=== PATIENT | male | born 1945 | race Caucasian/White ===

== ENCOUNTER 2019-08-29 09:45 | Emergency (ER) | payer MEDICARE ==
[~2019-08-29] VITALS: Ht 180.3 cm; Wt 118.8 kg
[2019-08-29] MEDS ORDERED: ATOR80TA59 (09:55)
[2019-08-29] MEDS ORDERED: GABA-843 (09:55)
[2019-08-29] MEDS ORDERED: ASPI81TA85 PO (09:55)
[2019-08-29] MEDS ORDERED: LEVO100T5 (09:55)
--- NOTE | 2019-08-29 10:39 | REP ---
Clinical: Cough . Comparison: 12/20/2013 . Technique: PA and lateral. Findings: The mediastinum and cardiac silhouette are normal. The lung soliz are clear and without acute consolidation, effusion, or pneumothorax. The skeletal structures are intact and normal. Impression: 1. No acute cardiopulmonary process. Electronically Signed by David Perales MD 08/29/2019 10:31 A
[2019-08-29] MEDS ORDERED: ALBUTEROL SULFATE 2.5 MG/0.5 ML INH NEB SOLN NEB STA (10:42)
[2019-08-29 11:22] LABS: BASO % 0.5 % (0.0-1.0); EOS # 0.1 10^3/uL (0.0-0.5); EOS % 3.1 % (0.0-3.0); HEMATOCRIT 41.8 % (42.0-52.0); HEMOGLOBIN 13.5 g/dl (13.5-17.5); LYMPH # 1.2 10^3/uL (1.5-5.0); LYMPH % 28.8 % (24.0-44.0); MEAN CORPUSCULAR HEMOGLOBIN 30.3 pg (27.0-33.0); MEAN CORPUSCULAR HGB CONC 32.3 g/dl (32.0-36.5); MEAN CORPUSCULAR VOLUME 93.9 fl (80.0-96.0); MONO # 0.5 10^3/uL (0.0-0.8); MONO % 12.7 % (0.0-5.0); NEUTROPHILS # 2.3 10^3/uL (1.5-8.5); NEUTROPHILS % 54.2 % (36.0-66.0); PLATELET COUNT, AUTOMATED 180 10^3/uL (150-450); RED BLOOD COUNT 4.45 10^6/uL (4.30-6.10); WHITE BLOOD COUNT 4.2 10^3/uL (4.0-10.0)
[2019-08-29 11:46] LABS: BLOOD UREA NITROGEN 20 MG/DL (7-18); CALCIUM LEVEL 8.6 MG/DL (8.8-10.2); CARBON DIOXIDE LEVEL 26 MEQ/L (21-32); CHLORIDE LEVEL 111 MEQ/L (98-107); CK-MB VALUE MASS 2.1 NG/ML (<3.6); CPK CREATINE PHOSPHOKINASE 103 U/L (39-308); CREATININE FOR GFR 0.84 MG/DL (0.70-1.30); GLOMERULAR FILTRATION RATE > 60.0 (>42); GLUCOSE, FASTING 100 MG/DL (70-100); MB/CK RELATIVE INDEX 2.04 (< OR =4); NT-PRO BNP 55 PG/ML (<450); POTASSIUM SERUM 4.2 MEQ/L (3.5-5.1); SODIUM LEVEL 142 MEQ/L (136-145); TROPONIN I < 0.02 NG/ML (< 0.10)
[2019-08-29] MEDS ORDERED: IPRATROPIUM 0.5MG/ALBUTEROL 2.5MG INH SOL UD 3ML (DUONEB)(J7620) NEB ONE ×2 (12:15→13:45)
[2019-08-29] MEDS ORDERED: NS 500 ML IV ONE (12:15)
[2019-08-29] MEDS ORDERED: methylPREDNISolone INJ 125 MG/2 ML VIAL (J2930) IV ONE (12:15)
[2019-08-29 14:26] VITALS: O2SAT 96
[2019-08-29] MEDS ORDERED: AZIT-10 PO (14:48)
[2019-08-29] MEDS ORDERED: PROAAER10 INH (14:48)
[2019-08-29] MEDS ORDERED: PRED20TA PO (14:48)
[2019-08-29 15:10] VITALS: BP 138/78
--- NOTE | 2019-08-29 15:34 | ECGEPIP ---
[facility] - ED Test Date: 2019-08-29 Pat Name: MAO QUACH Department: Room: - Gender: Male Service Girl: ct : 1945 Requested By: SHIRAZ Bean PA-C Order Number: [id number] Reading MD: Juliocesar Cervantes Measurements Intervals [place] Rate: 72 P: 84 NM: 156 QRS: -2 QRSD: 115 T: -1 QT: 380 QTc: 416 Interpretive Statements SINUS RHYTHM WITH OCCASIONAL SUPRAVENTRICULAR PREMATURE COMPLEXES MODERATE INTRAVENTRICULAR CONDUCTION DELAY Comparison tracing not on file Electronically Signed on 08-29-2019 15:34:30 EST by Juliocesar Cervantes
== END 2019-08-29 15:10 | disposition home or self-care (01) ==
LOC: M ED 09:45
DX: J45.21 Mild intermittent asthma with (acute) exacerbation (principal); J06.9 Acute upper respiratory infection, unspecified; I11.9 Hypertensive heart disease without heart failure; Z79.2 Long term (current) use of antibiotics; Z79.51 Long term (current) use of inhaled steroids; Z79.82 Long term (current) use of aspirin; Z79.899 Other long term (current) drug therapy; Z88.8 Allergy status to other drugs, medicaments and biological substances; Z91.048 Other nonmedicinal substance allergy status; Z95.818 Presence of other cardiac implants and grafts
CPT/HCPCS: 36415; 71046; 80048; 82550; 82553; 83880; 84484; 85025; 93005; 94640; 96361; 96374; 99284; J2930

== ENCOUNTER 2019-09-01 09:06 | Emergency (ER) | payer MEDICARE ==
[~2019-09-01] VITALS: Ht 180.3 cm; Wt 115.5 kg
[2019-09-01 09:06] VITALS: BP 132/80
[~2019-09-01 09:06] MED LIST: ASPI81TA85 PO; ATOR80TA59; AZIT-10 PO; GABA-843; LEVO100T5; PRED20TA PO; PROAAER10 INH
[2019-09-01] MEDS ORDERED: ALBU8.5H (09:15)
[2019-09-01] MEDS ORDERED: AZIT-12 (09:15)
[2019-09-01] MEDS ORDERED: MUCI600T31 PO (10:07)
== END 2019-09-01 10:10 | disposition home or self-care (01) ==
LOC: M ED 09:06
DX: J20.9 Acute bronchitis, unspecified (principal); E78.00 Pure hypercholesterolemia, unspecified; E03.9 Hypothyroidism, unspecified; Z88.1 Allergy status to other antibiotic agents; Z88.6 Allergy status to analgesic agent; Z79.82 Long term (current) use of aspirin; Z79.899 Other long term (current) drug therapy

== ENCOUNTER 2019-09-18 14:21 | Emergency (ER) | payer MEDICARE ==
[~2019-09-18] VITALS: Ht 177.8 cm; Wt 116.8 kg
[~2019-09-18 14:21] MED LIST changes: +ALBU8.5H; +AZIT-12; +MUCI600T31 PO
--- NOTE | 2019-09-18 14:59 | REP ---
Left shoulder three views: Mineralization is normal. There is glenohumeral osteoarthritis. The acromioclavicular joint is unremarkable. There are no calcifications. There is no fracture or dislocation. There is a large destructive pathologic lucency in the proximal humeral shaft. Electronically Signed by Juan Dietz MD 09/18/2019 02:50 P
[2019-09-18] MEDS ORDERED: NAPR-837 PO (16:51)
[2019-09-18] MEDS ORDERED: NAPROXEN 250 MG TAB PO ONE (17:00)
[2019-09-18 17:05] VITALS: BP 144/80
--- NOTE | 2019-09-20 09:03 | ED PDOC ---
Post-Departure Follow-Up certified letter sent to pt re formal read of left shoulder. obtain pcp name and fax and ensure pt is following up Marlyn Montgomery MD Sep 20, 2019 09:03
== END 2019-09-18 17:09 | disposition home or self-care (01) ==
LOC: M ED 14:21
DX: M75.92 Shoulder lesion, unspecified, left shoulder (principal); M19.012 Primary osteoarthritis, left shoulder; I11.9 Hypertensive heart disease without heart failure; Z91.048 Other nonmedicinal substance allergy status; Z88.1 Allergy status to other antibiotic agents; Z88.6 Allergy status to analgesic agent; Z79.02 Long term (current) use of antithrombotics/antiplatelets; Z79.899 Other long term (current) drug therapy

== ENCOUNTER → 2019-09-23 | Outpatient (CLI) | payer MEDICARE ==
[~2019-09-23] MED LIST changes: +NAPR-837 PO
--- NOTE | 2019-09-24 08:22 | REP ---
WHOLE BODY BONE SCAN: Following the intravenous administration of 22 millicuries technetium 99m MDP, patient's whole body is imaged in the anterior and posterior projections with additional oblique and lateral views are obtained. There is increased uptake in the proximal left humerus at the site of the suspicious appearing bone lesion seen on plain films of 09/18/2019. Focal increased uptake is seen in the anterior right 3rd rib, and there is a focus of increased uptake in the posterolateral left 6th rib. I cannot exclude metastatic lesions of the ribs. There appears to be scattered arthritic uptake, specifically at both shoulder joints, throughout the spine, at both knees, and both hands and at the left hip. There appears to be a photopenic right hip prosthesis. Renal and bladder activity are seen. IMPRESSION: Ill-defined increased uptake in the proximal left humerus at the site of the suspicious bone lesion on plain films of 09/18/2019. Focal increased uptake in the anterior right 3rd rib and posterolateral left 6th rib. I cannot exclude metastatic lesions of the ribs. Electronically Signed by Juan Maldonado MD 09/24/2019 10:44 P
== END ==
LOC: M RAD 09:57
PROVIDERS: ATTEND Physician Assistant
DX: M89.9 Disorder of bone, unspecified (principal)
CPT/HCPCS: 78306; A9503

== ENCOUNTER → 2019-09-25 | Outpatient (CLI) | payer MEDICARE ==
[~2019-09-25] MED LIST changes: +GASTROGRAFIN SOLUTION 30ML (Q9963) As Ordered ONE; +ISOVUE-370 76% 100ML VIAL (Q9967) As Ordered ONE
--- NOTE | 2019-09-25 17:31 | REP ---
CT of the chest with IV contrast: On a recent plain film study of the left shoulder. There is a large destructive lytic lesion in the proximal humeral shaft. The proximal humerus is not visible on this chest CT. There is a comparison chest CT dated 11/11/2010. There are no lung masses or nodules. There are no infiltrates or pleural effusions. There is no mediastinal, hilar or axillary lymph node enlargement. The thoracic aorta is unremarkable. Cardiac size is normal. The cortex at the anterior tip of the right third rib has a mottled appearance. This corresponds to the increased uptake in this location on the radionuclide bone scan performed this same date. At the lateral aspect of the left fifth rib. There is an expansile destruction lesion that corresponds to a focal increased uptake on the radionuclide bone scan. Impression: There are bony lesions anteriorly in the right third rib and laterally in the left fifth rib and correspond uptake on the radionuclide bone scan performed this same date. Electronically Signed by Juan Dietz MD 09/25/2019 05:22 P
--- NOTE | 2019-09-25 17:38 | REP ---
CT study of the abdomen and pelvis without and with IV contrast: There is dual phase imaging after IV contrast: The study is performed contiguous with the chest CT this same date. The the patient has a large lytic lesion in the proximal left humeral shaft. There are no comparison abdomen/pelvis CT studies. There is a 1.9 cm lucent lesion posteriorly hepatic left lobe posteriorly, likely an hepatic cyst. The hepatic parenchyma is otherwise homogeneous. The gallbladder, pancreas and spleen are unremarkable. The adrenals are unremarkable. There are multiple bilateral Bosniak type 1 renal cysts. The largest cyst that the left kidney mid pole measuring 5.2 cm. No solid renal masses are identified. There are no renal calculi. There is no hydronephrosis. There is no perinephric stranding. The abdominal aorta is unremarkable. There is no periaortic adenopathy or mass. There are diverticula in the descending colon and sigmoid colon without diverticulitis. The bowel is otherwise unremarkable. The mesentery is unremarkable. Pelvis: The appendix is unremarkable. There is a right hip arthroplasty with beam-hardening artifact obscuring the inferior pelvis. No ascites is identified. No pelvic adenopathy is identified. There are no lytic, blastic or destructive skeletal lesions. Impression: Hypodense lesion in the hepatic left lobe, likely a cyst. Multiple bilateral renal cortical cysts. Sigmoid colon diverticulosis without diverticulitis. No mass, adenopathy or ascites. No skeletal lytic, blastic or destructive changes. There is multilevel degenerative disc disease and facet osteoarthritis throughout the lumbar spine. There is a right hip arthroplasty. Electronically Signed by Juan Dietz MD 09/25/2019 05:29 P
== END ==
LOC: M RAD 12:10
PROVIDERS: ATTEND Physician Assistant
DX: M89.9 Disorder of bone, unspecified (principal); K76.89 Other specified diseases of liver; N28.1 Cyst of kidney, acquired; K57.30 Diverticulosis of large intestine without perforation or abscess without bleeding; Z96.641 Presence of right artificial hip joint; M51.36 Other intervertebral disc degeneration, lumbar region; M47.896 Other spondylosis, lumbar region
CPT/HCPCS: 71260; 74178; Q9963; Q9967

== ENCOUNTER → 2019-11-11 | Outpatient (CLI) | payer MEDICARE ==
[~2019-11-11] MED LIST changes: +D 1010004 PO; +GABA-845 PO; -GASTROGRAFIN SOLUTION 30ML (Q9963) As Ordered ONE; +IBUP-1114 PO; -ISOVUE-370 76% 100ML VIAL (Q9967) As Ordered ONE; +MM S100C PO; +PERCOCET PO; +VITA-157 PO; +VITA500C19 PO
--- NOTE | 2019-11-12 09:48 | RADONC ---
RADIATION ONCOLOGY NEW PATIENT CONSULTATION: DATE: 11/11/2019 CHART NUMBER: [id number] DIAGNOSIS: Multiple myeloma, status post impending pathologic fracture involving the left proximal humerus; status post left femoral stabilization with biopsy. 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 STAGE: Multiple myeloma. ECOG PERFORMANCE STATUS: 0. ICD-10 CODE: C - 90. HISTORY OF PRESENT ILLNESS: The patient is a 74-year-old male who started having pain in his left humerus in April 2019. At first he felt that was most likely a pulled muscle and did not seek any professional help. However, the pain became more intensified to the point that he was getting onto his tractor at home and had excruciating pain. He went to the emergency room in August and he had an MRI scan as well as x-rays of the humerus. The x-rays revealed a lytic extensive permeatively destructive lesion of the proximal humeral diaphysis. An MRI scan showed a permeative lytic lesion involving the proximal left humeral shaft with endosteal scalloping and a cortical breakthrough spanning the length of approximately 11 cm. Additional destructive lytic lesions were seen involving the distal aspect of the left clavicle and the lateral segment of the left 5th rib. No gross displaced fracture was seen at that time. The patient was taken to the operating room on 10/16/2019 for biopsy and prophylactic stabilization of the proximal humerus. He tolerated the procedure relatively well and has been referred to us for local regional radiotherapy. He has an appointment to see Dr. Jos Santana on November 18, 2019. He comes today to discuss the logistics of radiotherapy. PAST MEDICAL HEALTH: He has a history of arthritis, coronary artery disease, cancer, chronic lower back pain. He had a " heart attack" and has had three stent placements. He has general hyperlipidemia and spondylosis of the lumbar area and hypothyroidism. PAST SURGICAL HEALTH: He has a history of diverticulitis and undergoes colonoscopies. He had a coronary artery angioplasty with stent placement. He had right hip replaced in the past. Knee arthroscopy. He had a left rotator cuff repair and spinal surgery in the involved lumbar vertebrae. He also had an open biopsy with nail stabilization performed of the left humerus with a Ryder intramedullary locked proximately and distally. FAMILY HISTORY: His father is from lung cancer and he has a brother who is living with prostate cancer. SOCIAL HISTORY: He has never smoked. Alcohol history: He is a past drinker of approximately one drink per day but now only drinks an occasional glass of wine. ALLERGIES: CELEBREX and KEFLEX. REVIEW OF SYSTEMS: RESPIRATORY: He denies coughing, dyspnea on hemoptysis, hiccups, pleuritic chest pain or wheezing. NECK: Denies masses, muscle weakness, pain decreased range of motion. MUSCULOSKELETAL: He has a history of arthritis and had a history of bone pain involving the left humerus with limitation of motion the limitation of motion however has improved since he has been rehabilitating from his surgery. He denies significant joint pain, muscle weakness but has decreased range of motion still with his left upper extremity, which is improving significantly. INTEGUMENTARY: Denies alopecia, blisters bruising, significant dry skin, facial burning problems with fingernails, photosensitivity, pruritus, rashes or urticaria. HEAD: Denies alopecia. GENITOURINARY: Denies dysuria, frequency, hematuria, impotence, incontinence, nocturia, renal stone disease, scrotal swelling, urgency or changes in urine color. GASTROINTESTINAL: He has a history of diverticulitis and diverticulosis and he also has some issues with lactose intolerance. These conditions intermittently affect his bowel habits. He denies heartburn, dyspepsia, hematemesis, hematochezia hemorrhoids, melena, GI bleeding, nausea, significant pain or cramping at the current time he denies early satiety or vomiting. ENT: Denies ear pain, epistaxis, esophagitis, hearing difficulty, mouth dryness oral bleeding, otitis, sinusitis, sputum production, stomatitis, alteration of taste or tinnitus. CONSTITUTIONAL: Denies decreased appetite, fatigue, fevers, lethargy, malaise, night sweats, rigors, chills or weight change. CARDIOVASCULAR: He has had a history of some irregularity with his heart rate (uncertain). He denies any angina, significant dyspnea, edema, orthopnea or palpitations. ALLERGIES/IMMUNOLOGIC: He has had some allergic reactions to medications that are listed above with the major reaction being rash and subdural hemorrhage. EXAMINATION FINDINGS: VITALS: Weight 261.4 pounds, temperature 98.6, pulse 76, respirations 20, systolic 138, diastolic BP was 75, O2 saturation 96% on room air. HEENT: Normocephalic. EOMs intact. PERRLA. Fundi benign. LYMPHATICS: No palpable peripheral lymphadenopathy is appreciated in the cervical, supraclavicular, axillary or inguinal lymph node chains. EXTREMITIES: We note that he has post stabilization procedure involving his left humerus with his small incisions healing relatively nicely and no significant swelling. He has fairly good range of motion involving his left upper extremity. LUNGS: Clear to auscultation and percussion. HEART: Regular without audible murmurs. ABDOMEN: Without evidence of hepatomegaly, masses, deep abdominal tenderness. EXTREMITIES: Without cyanosis, clubbing or edema. No bony percussive tenderness is noted. NEUROLOGIC: Examination grossly physiologic and nonfocal. IMPRESSION: Multiple myeloma presenting with a lytic impending pathologic fracture involving the left humerus. He is status post stabilization procedure with a intramedullary nail insertion. He may be slightly mildly symptomatic in the areas involving the right rib but not significantly so. The pathology was described as a monoclonal IgH gene rearrangement consistent with monoclonal B-cell lymphoproliferation; plasma cell proliferation, nonsecretory phenotype. PLAN OF RADIOTHERAPY: The patient presents for evaluation of local regional radiotherapy to the left humerus for which he is a candidate for palliation. We would recommend a dose of approximately 6447-3627 cGy administered in approximately 10 fractions. Prior to treatment delivery localization will be accomplished upon our CT simulator and treatment portals defined by the use of multiple leaf collimators. The indications, possible side effects as well as alternatives to radiotherapy have been explained to the patient in detail. He understands and is willing to proceed as outlined. Thank you for allowing us the opportunity of participation in the management of this very fine gentleman. cc: Jos Santana DO
== END ==
LOC: M ONCR 13:05
PROVIDERS: ATTEND Radiology Radiation Oncology
DX: C90.00 Multiple myeloma not having achieved remission (principal); M84.422S Pathological fracture, left humerus, sequela; M19.90 Unspecified osteoarthritis, unspecified site; I25.10 Atherosclerotic heart disease of native coronary artery without angina pectoris; E03.9 Hypothyroidism, unspecified; G89.29 Other chronic pain; M54.5 Low back pain; M47.816 Spondylosis without myelopathy or radiculopathy, lumbar region; E78.5 Hyperlipidemia, unspecified; Z95.5 Presence of coronary angioplasty implant and graft; Z88.8 Allergy status to other drugs, medicaments and biological substances; Z79.82 Long term (current) use of aspirin; Z79.84 Long term (current) use of oral hypoglycemic drugs; Z79.899 Other long term (current) drug therapy

== ENCOUNTER 2019-11-19 13:49 | Outpatient (RCR) | payer MEDICARE ==
--- NOTE | 2019-11-19 14:37 | RADONC ---
RADIATION ONCOLOGY SIMULATION NOTE DATE: 11/19/2019 CHART NUMBER: [id number] Mr. Santos was taken to the CT scan for CT simulation of his left humerus field. CT was accomplished without difficulty or discomfort. Radiation treatment planning is underway and radiation treatments will begin subsequently. An immobilization device was created without difficulty or discomfort. It will be used throughout the course of treatment. I was physically present throughout the course of CT simulation. We will clinically setup the patient's rib electron beam soliz at the linear accelerator.
== END 2019-11-25 ==
LOC: M ONCR 13:49
PROVIDERS: ATTEND Radiology Radiation Oncology
DX: C90.00 Multiple myeloma not having achieved remission (principal)

== ENCOUNTER 2019-12-05 14:59 | Outpatient (RCR) | payer MEDICARE ==
--- NOTE | 2019-11-27 18:46 | RADONC ---
RADIATION ONCOLOGY SIMULATION NOTE DATE: 11/27/2019 CHART NUMBER [id number] Mr. Santos was taken to the linear accelerator today for clinical setup of his right rib electron field. Setup was accomplished without difficulty or discomfort. Radiation treatment planning is underway and radiation treatments will begin subsequently. The previous immobilization device will be used throughout the course of treatment. I was physically present throughout the course of clinical setup simulation.
--- NOTE | 2019-12-02 08:40 | RADONC ---
RADIATION ONCOLOGY PROGRESS NOTE DATE OF SERVICE: 12/01/2019 CHART NUMBER: [id number]. PROGRESS NOTE: Mr. Santos is presently at a dose of 1200 cGy to his left arm and left ribs. He is tolerating treatments quite well with no difficulties related to his radiation therapy. He has got no other complaints. REVIEW OF SYSTEMS: The patient's review of systems is noncontributory. He denies nausea, vomiting, fevers, chills, night sweats, diplopia, headaches, anxiety or depression, anorexia, weight loss, visual disturbances, chest pain, urinary or bowel difficulties, bone pain, or neurological problems. PHYSICAL EXAMINATION: The patient's physical examination was deferred as per COVID-19 precautions. Mr. Santos is tolerating treatments quite well, and radiation will continue as scheduled.
--- NOTE | 2019-12-06 12:22 | RADONC ---
RADIATION ONCOLOGY TREATMENT SUMMARY DATE OF SERVICE: 12/05/2019 CHART NUMBER: [id number] DIAGNOSIS: Multiple myeloma. ECOG PERFORMANCE STATUS: 0. TREATMENT SUMMARY: Mr. Santos is a very pleasant 74-year-old white male with the diagnosis of multiple myeloma who presented to us for consideration of palliative radiation therapy to his left arm, as well as adjacent left ribs and some right ribs. We treated the patient to his left humerus and left rib met for a total dose of 2400 cGy delivered in eight fractions of 300 cGy each over 9 elapsed days from 08/30/2019 through 12/05/2019. The patient's left humerus was treated on the linear accelerator utilizing a 15 MV photon beam via parallel opposed soliz. We included the patient's rib met in that field. In addition, we treated the patient to his right ribs for a dose of 1600 cGy delivered in four fractions of 400 cGy each over three elapsed days from 12/02/2019 through 12/05/2019. The patient's right ribs were treated on a linear accelerator utilizing a 12 MEV electron beam prescribed to the 90% isodose line via non phos technique. Mr. Santos tolerated his treatments quite well and was able to complete therapy as prescribed without difficulty. The patient is scheduled to see me again in 1 month for further followup. He will also continue to be followed by his other physicians as well. Thank you for allowing us to participate in the care of this very pleasant gentleman. If I could be of any further assistance or provide you any information, please free to contact me anytime. As always, warm regards. cc: Jos Santana DO
== END 2019-12-25 ==
LOC: M ONCR 14:59
PROVIDERS: ATTEND Radiology Radiation Oncology
DX: C90.00 Multiple myeloma not having achieved remission (principal)

== ENCOUNTER → 2020-01-08 | Outpatient (CLI) | payer MEDICARE ==
--- NOTE | 2020-01-13 12:03 | RADONC ---
RADIATION ONCOLOGY TELEPHONE FOLLOWUP NOTE DATE: 01/08/2020 This is a telemedicine visit. The patient was informed of the risks including security breech, technological failure, inability to perform a comprehensive physical exam which could delay or prevent an accurate diagnosis, and potential complications from treatment decisions rendered over a telemedicine platform. The patient understands and consented to the use of telehealth services phone only. CHART NUMBER: [id number] DIAGNOSIS: Multiple myeloma. ECOG PERFORMANCE STATUS: 0 FOLLOWUP NOTE: Mr. Santos is a 74-year-old white male with the diagnosis of multiple myeloma who is presenting to us today for routine followup visit by telephone 1 month post completion of palliative radiation therapy to two sites of rib metastasis and his left humerus. The patient presents for this phone call reporting that he has absolutely no pain and that the pain resolved quite quickly after radiation. He had no side effects with the radiation and at this time has no complaints related to his radiation therapy or disease whatsoever. REVIEW OF SYSTEMS: The patient's review of systems is noncontributory. Denies nausea, vomiting, fevers, chills, night sweats, diplopia, headaches, anxiety or depression, anorexia, weight loss, visual disturbances, chest pain, urinary or bowel difficulties, bone pain, or neurological problems. PHYSICAL EXAMINATION: Physical exam was deferred at this time as per COVID-19 precautions. This was a telephone consultation. ASSESSMENT: I had very, very lengthy discussion with this patient, which was somewhat difficult. The patient is insisting that we do new CT scans and x-rays of the arm. Although, I explained to him at this point is 4 weeks post radiation and I am not expecting to see much difference. I explained to the patient that clinically he has responded extremely well with absolute resolution in his discomfort and no difficulties with the treatment. I did acquiesce to his demands to order the scans and x-rays at this time, however, I explained to him that it may be a rather lengthier period of time before those bones heel and normally I wait at least another 2 months before rescanning. The patient then said that he was going to be seeing Dr. Kehinde Martinez in [place] who will be doing new x-rays and scans in 2 weeks but he still wanted CAT scans and x-rays done here, so I ordered those as per request. I did explain to him that Dr. Martinez will want to see those scans and he should be able to use ours. He can always re-x-ray if he so desires in 2 weeks. I did explain to him that secondary to the COVID crisis we have had significant staff reductions here and his CT scan and x-ray will probably not take place this week but I believe will be able to be done by next week. Insurance authorization will need to be obtained. I also explained to the patient that I want him to be seen by his medical oncologist. At first he said he did not have a medical oncologist, but then I pointed out that Dr. Jos Santana, DO was his medical oncologist and that he needs to be seen by Dr. Santana. I did explain that multiple myeloma is managed through medical oncology and at the role of radiation oncology is purely for palliation and [id number]. We have treated the sites that have caused him difficulty and he appears to have had an excellent result at this point. His overall management however should be through his medical oncology office. In addition, I explained to this patient that I will be retiring sometime in the next 2-3 months and that I want to make sure that he is in the system and being followed before I leave. I did explain that we need to dot our I's and cross her T's. I asked him to call Dr. Santana but he said he would not call Dr. Santana that he would just play it by ear. He then said if I wanted him to see Dr. Santana I should contact Dr. Santana's office and have Dr. Santana's office contact him to set up an appointment. He is scheduled see Dr. Kehinde Martinez on January 28 in followup. So, overall in summary, I have ordered a new CT scan of the thorax which will include the ribs that were treated as well as the arm. In addition, I have ordered x-rays of his humerus and shoulder. We are ready setting up a referral back to Dr. Jos Santana so that he can follow and undergo his care there. In addition, he is scheduled see Dr. Martinez, who the patient tells me was going to order the same scans that we are now ordering here and hopefully our scans will be of use to Dr. Martinez. After the patient complained about the drive to [place] to see Dr. Santana, I did explain that we do have oncology here and if he wishes I could refer him here for management but he refused that as well. I have scheduled the patient to be followed in my office in 4 weeks' time to make sure that the loop is closed and that the patient is receiving good followup with medical oncology. cc: MD Tati Jansen PA Rahul Seth, DO [facility]MAN
== END ==
LOC: M ONCR 08:52
PROVIDERS: ATTEND Radiology Radiation Oncology
DX: C90.00 Multiple myeloma not having achieved remission (principal)

== ENCOUNTER → 2020-01-26 | Outpatient (CLI) | payer MEDICARE ==
--- NOTE | 2020-01-26 23:18 | REP ---
REASON: History of multiple myeloma. Latest prior chest CT for comparison is 09/25/2019 with the next latest prior 11/11/2010, both reviewed. The lack of intravenous contrast decreases the sensitivity of the exam. The mediastinum and pulmonary jason are unchanged. No mass or adenopathy has developed. There is enlargement of the main pulmonary artery and the left pulmonary artery, status quo. This has been stable for years. There are no pleural or pericardial effusions. The imaged upper abdomen shows bilateral renal cysts, status quo. Bone window technique throughout the exam again shows multiple lytic lesions in multiple ribs and multiple vertebral bodies with some of the lesions being expansile, particularly in the ribs, where there is concomitant cortical destruction. These are essentially unchanged when compared to 09/25/2019. Evaluation of the lung soliz shows a few asymmetric densities in the left upper lobe. There are no new abnormal nodules. IMPRESSION: 1. Opacities in the left upper lobe, most consistent with subsegmental atelectatic change; however, followup is recommended. 2. Abnormal pulmonary artery, as described above, but stable. 3. Destructive bony lesions, as described above. 4. Other findings as described above. Electronically Signed by Bautista Sahni DO 01/27/2020 08:07 A
--- NOTE | 2020-01-26 23:19 | REP ---
REASON FOR EXAM: Followup. COMPARISON: 10/20/2019 The intramedullary left humeral caitlin is unchanged along with unchanged internally fixing screws. The pathological fracture seen in the proximal humeral diaphysis does have some increased density within it, which suggests healing. There is no new fracture. The intramedullary caitlin is unchanged in alignment and position. Electronically Signed by Bautista Sahni DO 01/27/2020 08:07 A
== END ==
LOC: M RAD 14:49
PROVIDERS: ATTEND Radiology Radiation Oncology
DX: C90.00 Multiple myeloma not having achieved remission (principal); M84.422D Pathological fracture, left humerus, subsequent encounter for fracture with routine healing; M89.9 Disorder of bone, unspecified

== ENCOUNTER → 2020-03-12 | Outpatient (REF) | payer MEDICARE ==
[~2020-03-12] MED LIST changes: -ASPI81TA85 PO; +ASPI81TA86 PO
[2020-03-12 13:50] LABS: BLOOD UREA NITROGEN 18 MG/DL (7-18); CALCIUM LEVEL 9.2 MG/DL (8.8-10.2); CARBON DIOXIDE LEVEL 28 MEQ/L (21-32); CHLORIDE LEVEL 104 MEQ/L (98-107); CREATININE FOR GFR 0.89 MG/DL (0.70-1.30); GLOMERULAR FILTRATION RATE > 60.0 (>42); GLUCOSE, FASTING 97 MG/DL (70-100); POTASSIUM SERUM 4.4 MEQ/L (3.5-5.1); SODIUM LEVEL 138 MEQ/L (136-145)
[2020-03-12 13:51] LABS: ALBUMIN 3.3 GM/DL (3.2-5.2); ALT/SGPT 22 U/L (12-78); BILIRUBIN,TOTAL 0.5 MG/DL (0.2-1.0); CHOLESTEROL LEVEL 180 MG/DL (<200); CHOLESTEROL RISK RATIO 4.285 (<5); HDL CHOLESTEROL 42 MG/DL (>40); LDL CHOLESTEROL 106 MG/DL (<100); NON-HDL-C 138 MG/DL; TOTAL 25(OH) VITAMIN D 28.7 NG/ML (30.0-100.0); TOTAL PROTEIN 7.3 GM/DL (6.4-8.2); TRIGLYCERIDES LEVEL 161 MG/DL (<150)
== END ==
LOC: M SFHCADAM 10:18
PROVIDERS: ATTEND Physician Assistant
DX: E78.2 Mixed hyperlipidemia (principal); E03.9 Hypothyroidism, unspecified; E55.9 Vitamin D deficiency, unspecified

== ENCOUNTER → 2020-09-13 | Outpatient (REF) | payer MEDICARE ==
[~2020-09-13] MED LIST changes: +GABA-282; -GABA-843
[2020-09-13 13:20] LABS: CHOLESTEROL RISK RATIO 2.74 (<5)
== END ==
LOC: M SFHCADAM 10:29
PROVIDERS: ATTEND Physician Assistant
DX: E78.2 Mixed hyperlipidemia (principal)

== ENCOUNTER → 2021-03-21 | Outpatient (REF) | payer MEDICARE ==
[~2021-03-21] MED LIST changes: +GABA-283 PO; -GABA-845 PO; -VITA-157 PO; +VITAE40CA PO
[2021-03-21 13:27] LABS: ALBUMIN 3.5 GM/DL (3.2-5.2); ALT/SGPT 27 U/L (12-78); BILIRUBIN,TOTAL 0.4 MG/DL (0.2-1.0); BLOOD UREA NITROGEN 22 MG/DL (7-18); CALCIUM LEVEL 8.6 MG/DL (8.8-10.2); CARBON DIOXIDE LEVEL 26 MEQ/L (21-32); CHLORIDE LEVEL 109 MEQ/L (98-107); CHOLESTEROL LEVEL 200 MG/DL (<200); CHOLESTEROL RISK RATIO 4.444 (<5); GLOMERULAR FILTRATION RATE > 60.0 (>42); GLUCOSE, FASTING 110 MG/DL (70-100); HDL CHOLESTEROL 45 MG/DL (>40); LDL CHOLESTEROL 105 MG/DL (<100); NON-HDL-C 155 MG/DL; SODIUM LEVEL 143 MEQ/L (136-145); TOTAL PROTEIN 6.1 GM/DL (6.4-8.2); TRIGLYCERIDES LEVEL 251 MG/DL (<150)
[2021-03-21 13:33] LABS: TOTAL 25(OH) VITAMIN D 22.7 NG/ML (30.0-100.0)
== END ==
LOC: M SFHCADAM 10:43
PROVIDERS: ATTEND Physician Assistant
DX: E78.2 Mixed hyperlipidemia (principal); E03.9 Hypothyroidism, unspecified; E55.9 Vitamin D deficiency, unspecified

== ENCOUNTER → 2021-09-19 | Outpatient (REF) | payer MEDICARE ==
[2021-09-19 17:18] LABS: ALBUMIN 3.5 GM/DL (3.2-5.2); ALT/SGPT 28 U/L (12-78); BILIRUBIN,TOTAL 0.5 MG/DL (0.2-1.0); BLOOD UREA NITROGEN 20 MG/DL (7-18); CALCIUM LEVEL 8.6 MG/DL (8.8-10.2); CARBON DIOXIDE LEVEL 29 MEQ/L (21-32); CHLORIDE LEVEL 106 MEQ/L (98-107); CHOLESTEROL LEVEL 144 MG/DL (<200); CREATININE FOR GFR 0.97 MG/DL (0.70-1.30); GLOMERULAR FILTRATION RATE > 60.0 (>42); GLUCOSE, FASTING 80 MG/DL (70-100); HDL CHOLESTEROL 40 MG/DL (>40); LDL CHOLESTEROL 60 MG/DL (<100); NON-HDL-C 104 MG/DL; POTASSIUM SERUM 4.3 MEQ/L (3.5-5.1); SODIUM LEVEL 140 MEQ/L (136-145); TOTAL PROTEIN 6.2 GM/DL (6.4-8.2); TRIGLYCERIDES LEVEL 220 MG/DL (<150)
[2021-09-19 17:19] LABS: TOTAL 25(OH) VITAMIN D 32.1 NG/ML (30.0-100.0)
== END ==
LOC: M SFHCADAM 11:59
PROVIDERS: ATTEND Physician Assistant
DX: E78.2 Mixed hyperlipidemia (principal); E03.9 Hypothyroidism, unspecified; E55.9 Vitamin D deficiency, unspecified; Z79.899 Other long term (current) drug therapy

== ENCOUNTER → 2021-10-12 | Outpatient (REF) | payer MEDICARE | LOC: M SFHCADAM 18:35 | PROVIDERS: ATTEND Physician Assistant | DX: R05.9 Cough, unspecified (principal) ==

== ENCOUNTER 2022-01-13 14:15 | Emergency (ER) | payer MEDICARE ==
[~2022-01-13] VITALS: Ht 177.8 cm; Wt 118.2 kg
[2022-01-13] MEDS ORDERED: ACYC1TAB (14:59)
[2022-01-13] MEDS ORDERED: FURO20TA2 (14:59)
[2022-01-13] MEDS ORDERED: TAMS1CAP17 (14:59)
[2022-01-13] MEDS ORDERED: CYCL-707 (14:59)
[2022-01-13] MEDS ORDERED: REVL5CAP2 (14:59)
[2022-01-13] MEDS ORDERED: PANT40TA29 (14:59)
[2022-01-13] MEDS ORDERED: HYDR-3713 PO (16:59)
[2022-01-13] MEDS ORDERED: DOXY-443 PO (16:59)
[2022-01-13 17:08] VITALS: BP 141/87
== END 2022-01-13 17:30 | disposition home or self-care (01) ==
LOC: M ED 14:15
DX: S22.31XA Fracture of one rib, right side, initial encounter for closed fracture (principal); W01.0XXA Fall on same level from slipping, tripping and stumbling without subsequent striking against object, initial encounter; L03.119 Cellulitis of unspecified part of limb; E03.9 Hypothyroidism, unspecified; Z86.79 Personal history of other diseases of the circulatory system; Z95.5 Presence of coronary angioplasty implant and graft; Y92.009 Unspecified place in unspecified non-institutional (private) residence as the place of occurrence of the external cause; Y93.9 Activity, unspecified; Y99.9 Unspecified external cause status; Z88.6 Allergy status to analgesic agent; Z79.899 Other long term (current) drug therapy

== ENCOUNTER → 2022-05-09 | Outpatient (CLI) | payer MEDICARE ==
[~2022-05-09] MED LIST changes: +ACYC1TAB; +CYCL-707; +DOXY-443 PO; +FURO20TA2; +HYDR-3713 PO; +PANT40TA29; +REVL5CAP2; +TAMS1CAP17
== END ==
LOC: M CARPUL 09:14
PROVIDERS: ATTEND Family Medicine
DX: R60.9 Edema, unspecified (principal)

== ENCOUNTER → 2023-11-14 | Outpatient (CLI) | payer MEDICARE ==
[~2023-11-14] MED LIST changes: -GABA-283 PO; +GABA-284 PO
== END ==
LOC: M ADAMS 09:59
PROVIDERS: ATTEND Family Medicine
DX: M51.36 Other intervertebral disc degeneration, lumbar region (principal)

== ENCOUNTER → 2023-11-14 | Outpatient (CLI) | payer MEDICARE | LOC: M CLY 09:52 | PROVIDERS: ATTEND Family Medicine | DX: M54.50 Low back pain, unspecified (principal) ==

== ENCOUNTER → 2023-11-20 | Outpatient (REF) | payer MEDICARE ==
[2023-11-20 17:44] LABS: BASO # 0.1 10^3/uL (0.0-0.2); BASO % 1.3 % (0.0-1.0); EOS # 0.2 10^3/uL (0.0-0.5); EOS % 5.3 % (0.0-3.0); HEMOGLOBIN 11.7 g/dl (13.5-17.5); LYMPH # 0.5 10^3/uL (1.5-5.0); LYMPH % 12.9 % (24.0-44.0); MEAN CORPUSCULAR HEMOGLOBIN 30.9 pg (27.0-33.0); MEAN CORPUSCULAR HGB CONC 33.4 g/dl (32.0-36.5); MEAN CORPUSCULAR VOLUME 92.3 fl (80.0-96.0); MONO # 0.4 10^3/uL (0.0-0.8); MONO % 9.7 % (2.0-8.0); NEUTROPHILS # 2.7 10^3/uL (1.5-8.5); PLATELET COUNT, AUTOMATED 190 10^3/uL (150-450); RED BLOOD COUNT 3.79 10^6/uL (4.30-6.10); WHITE BLOOD COUNT 3.8 10^3/uL (4.0-10.0)
[2023-11-20 18:15] LABS: ALKALINE PHOSPHATASE 81 U/L (46-116); ALT/SGPT 12 U/L (7.0-40); AST/SGOT 16 U/L (<34); BILIRUBIN,TOTAL 0.7 MG/DL (0.3-1.2); BLOOD UREA NITROGEN 29 MG/DL (9-23); CALCIUM LEVEL 9.1 MG/DL (8.3-10.6); CARBON DIOXIDE LEVEL 29 MMOL/L (20-31); CHLORIDE LEVEL 102 MMOL/L (98-107); CHOLESTEROL LEVEL 124 MG/DL (<200); CHOLESTEROL RISK RATIO 3.46 (<5); CREATININE FOR GFR 1.12 MG/DL (0.70-1.30); GLOMERULAR FILTRATION RATE > 60.0 (>42); GLUCOSE, FASTING 98 MG/DL (74-106); HDL CHOLESTEROL 35.8 MG/DL (>40); LDL CHOLESTEROL 60.6 MG/DL (<100); NON-HDL-C 88.2 MG/DL; POTASSIUM SERUM 4.1 MMOL/L (3.5-5.1); SODIUM LEVEL 136 MMOL/L (136-145); THYROID STIMULATING HORMONE 1.787 uIU/ML (0.55-4.78); TOTAL PROTEIN 7.1 G/DL (5.7-8.2); TRIGLYCERIDES LEVEL 138 MG/DL (<150)
== END ==
LOC: M SFHCADAM 14:30
PROVIDERS: ATTEND Family Medicine
DX: Z00.00 Encounter for general adult medical examination without abnormal findings (principal); Z79.899 Other long term (current) drug therapy

== ENCOUNTER 2023-12-13 15:02 | Emergency (ER) | payer MEDICARE ==
[~2023-12-13] VITALS: Ht 177.8 cm; Wt 109.1 kg
[2023-12-13] MEDS: ACETAMINOPHEN *IV* 1,000 MG in IV 1 EA IV ONE (17:05)
[2023-12-13 17:08] LABS: HEMATOCRIT 31.1 % (42.0-52.0); HEMOGLOBIN 10.3 g/dl (13.5-17.5); MEAN CORPUSCULAR HEMOGLOBIN 30.5 pg (27.0-33.0); MEAN CORPUSCULAR HGB CONC 33.1 g/dl (32.0-36.5); PLATELET COUNT, AUTOMATED 178 10^3/uL (150-450); RED BLOOD COUNT 3.38 10^6/uL (4.30-6.10); WHITE BLOOD COUNT 3.9 10^3/uL (4.0-10.0)
[2023-12-13 17:31] LABS: LIPASE 20 U/L (12-53)
[2023-12-13 17:34] LABS: ALBUMIN 2.9 G/DL (3.2-5.2); ALKALINE PHOSPHATASE 82 U/L (46-116); ALT/SGPT 14 U/L (7.0-40); AST/SGOT 25 U/L (<34); BILIRUBIN,DIRECT 0.3 MG/DL (<0.4); BLOOD UREA NITROGEN 31 MG/DL (9-23); CALCIUM LEVEL 7.9 MG/DL (8.3-10.6); CARBON DIOXIDE LEVEL 23 MMOL/L (20-31); CHLORIDE LEVEL 101 MMOL/L (98-107); CREATININE FOR GFR 1.18 MG/DL (0.70-1.30); GLOMERULAR FILTRATION RATE > 60.0 (>42); GLUCOSE, FASTING 125 MG/DL (74-106); POTASSIUM SERUM 4.5 MMOL/L (3.5-5.1); SODIUM LEVEL 134 MMOL/L (136-145); TOTAL PROTEIN 7.9 G/DL (5.7-8.2)
[2023-12-13 17:35] LABS: ANISOCYTOSIS 1+; ATYPICAL LYMPH 3 % (0-5); BASOPHILS 1 % (0-1); EOSINOPHILS 1 % (0-3); LYMPHOCYTES 11 % (16-44); MONOCYTES 8 % (0-5); NEUTROPHILS 75 % (28-66)
[2023-12-13 17:36] LABS: PLATELET ESTIMATE NORMAL (NORMAL); TOXIC VACUOLATION 1+
[2023-12-13] MEDS ORDERED: PROHANCE 279.3MG/ML 15ML VIAL As Ordered ONE (18:00)
[2023-12-13] MEDS ORDERED: PROHANCE 279.3MG/ML 5ML VIAL As Ordered ONE (18:00)
[2023-12-13] MEDS: GLYCERIN ADULT SUPP PR ONE (20:42)
[2023-12-13] MEDS: METHYLNALTREXONE BROMIDE 12MG/0.6ML VIAL (RELISTOR) SC ONE (20:42)
[2023-12-13] MEDS: PIPERACILLIN/TAZOBACTAM SOD 3.375 GM in D5W MINI-BAG PLUS 50 ML IV ONE (22:11)
[2023-12-13 23:44] VITALS: BP 144/61; TEMP 96.5; O2SAT 97
[2023-12-13] MEDS: MORPHINE 4 MG/ML 1ML VIAL IV ONE (23:51)
== END 2023-12-13 23:46 | disposition short-term general hospital (02) ==
LOC: M ED 15:02
DX: G83.4 Cauda equina syndrome (principal); C90.00 Multiple myeloma not having achieved remission; E78.00 Pure hypercholesterolemia, unspecified; E03.9 Hypothyroidism, unspecified; M54.50 Low back pain, unspecified; Z88.8 Allergy status to other drugs, medicaments and biological substances; Z79.1 Long term (current) use of non-steroidal anti-inflammatories (NSAID); Z79.899 Other long term (current) drug therapy; Z79.2 Long term (current) use of antibiotics
CPT/HCPCS: 36415; 51701; 71045; 72158; 74176; 80048; 80076; 81001; 83605; 83690; 85025; 87040; 87486; 87581; 87633; 87798; 93041; 94760; 96372; 96374; 96375; 99285; A9576; J0131; J2212; J2543

== ENCOUNTER → 2024-01-30 | Outpatient (REF) | payer MEDICARE ==
[~2024-01-30] MED LIST changes: +DOXY-323 PO; -DOXY-443 PO
[2024-01-30 19:11] LABS: ALKALINE PHOSPHATASE 75 U/L (46-116); ALT/SGPT 21 U/L (7.0-40); AST/SGOT 12 U/L (<34); BILIRUBIN,TOTAL 0.7 MG/DL (0.3-1.2); BLOOD UREA NITROGEN 27 MG/DL (9-23); CALCIUM LEVEL 8.2 MG/DL (8.3-10.6); CARBON DIOXIDE LEVEL 28 MMOL/L (20-31); CHLORIDE LEVEL 102 MMOL/L (98-107); CREATININE FOR GFR 1.08 MG/DL (0.70-1.30); GLOMERULAR FILTRATION RATE > 60.0 (>42); GLUCOSE, FASTING 69 MG/DL (74-106); POTASSIUM SERUM 4.2 MMOL/L (3.5-5.1); SODIUM LEVEL 136 MMOL/L (136-145); TOTAL PROTEIN 6.2 G/DL (5.7-8.2)
== END ==
LOC: M SFHCADAM 12:00
PROVIDERS: ATTEND Family Medicine
DX: R60.0 Localized edema (principal)

== ENCOUNTER → 2024-03-11 | Outpatient (CLI) | payer MEDICARE | LOC: M RAD 07:54 | PROVIDERS: ATTEND Family Medicine | DX: R77.0 Abnormality of albumin (principal); K76.0 Fatty (change of) liver, not elsewhere classified ==

== ENCOUNTER → 2024-04-23 | Outpatient (REF) | payer MEDICARE ==
[2024-04-23 18:20] LABS: IRON (FE) 58 UG/DL (65-175); PERCENT SATURATION 19.5 % (19.7-50.0); TOTAL IRON BINDING CAPACITY 298 UG/DL (250-425)
[2024-04-23 18:24] LABS: FERRITIN 282.7 NG/ML (10.5-307.3)
[2024-04-23 18:29] LABS: HEPATITIS B SURFACE ANTIBODY NEGATIVE (POSITIVE)
[2024-04-23 18:41] LABS: HEPATITIS B SURFACE ANTIGEN NEGATIVE (NEGATIVE)
[2024-04-23 19:02] LABS: HEPATITIS B CORE ANTIBODY IGM NEGATIVE (NEGATIVE)
[2024-04-25 22:37] LABS: TISSUE TRANSGLUTAMINASE IgA < 1.0 U/mL (<15.0)
[2024-04-27 19:47] LABS: IgG SERUM (part of Subclasses) 469 mg/dL (600-1540); IgG Subclass 1 258 mg/dL (382-929); IgG Subclass 2 135 mg/dL (241-700); IgG Subclass 3 13 mg/dL (22-178); IgG Subclass 4 17.3 mg/dL (4.0-86.0)
[2024-04-28 10:42] LABS: HEPATITIS B CORE ANTIBODY IGG NON-REACTIVE (NON-REACTIVE)
[2024-04-29 10:42] LABS: ALPHA 1 ANTITRYPSIN 145 mg/dL (83-199)
[2024-04-29 14:16] LABS: ANTI-SMOOTH MUSCLE ANTIBODY < 20 U (<20)
[2024-04-29 16:51] LABS: ANTI-MITOCHONDRIAL ANTIBODY NEGATIVE (NEGATIVE)
== END ==
LOC: M SFHCADAM 14:18
PROVIDERS: ATTEND Family Medicine
DX: K76.0 Fatty (change of) liver, not elsewhere classified (principal); E78.2 Mixed hyperlipidemia; E03.9 Hypothyroidism, unspecified; M54.50 Low back pain, unspecified; G89.29 Other chronic pain; C90.00 Multiple myeloma not having achieved remission; N28.1 Cyst of kidney, acquired; R60.0 Localized edema; Z11.59 Encounter for screening for other viral diseases; Z72.89 Other problems related to lifestyle
CPT/HCPCS: 82103; 82728; 82784; 82787; 83550; 86015; 86255; 86364; 86704; 86705; 86706; 87340; G0472

== ENCOUNTER → 2024-04-25 | Outpatient (CLI) | payer MEDICARE | LOC: M PLAIMG 08:43 | PROVIDERS: ATTEND Family Medicine | DX: R60.0 Localized edema (principal) ==

== ENCOUNTER → 2024-04-29 | Outpatient (REF) | payer MEDICARE | LOC: M SFHCADAM 11:57 | PROVIDERS: ATTEND Family Medicine | DX: Z01.818 Encounter for other preprocedural examination (principal) ==

== ENCOUNTER → 2024-05-27 | Outpatient (CLI) | payer MEDICARE | LOC: M ADAMS 13:27 | PROVIDERS: ATTEND Family Medicine | DX: J22 Unspecified acute lower respiratory infection (principal); R60.0 Localized edema ==

== ENCOUNTER → 2024-05-27 | Outpatient (REF) | payer MEDICARE ==
[~2024-05-27] MED LIST changes: -DOXY-323 PO; +DOXY-441 PO; +GABA-1172; -GABA-282; -VITA500C19 PO; +VITA500C22 PO
[2024-05-27 18:00] LABS: BASO % 0.3 % (0.0-1.0); EOS # 0.1 10^3/uL (0.0-0.5); HEMATOCRIT 32.7 % (42.0-52.0); LYMPH # 0.3 10^3/uL (1.5-5.0); LYMPH % 6.4 % (24.0-44.0); MEAN CORPUSCULAR HEMOGLOBIN 29.9 pg (27.0-33.0); MEAN CORPUSCULAR HGB CONC 30.6 g/dl (32.0-36.5); MEAN CORPUSCULAR VOLUME 97.6 fl (80.0-96.0); MONO # 0.4 10^3/uL (0.0-0.8); MONO % 9.7 % (2.0-8.0); NEUTROPHILS # 3.2 10^3/uL (1.5-8.5); NEUTROPHILS % 80.8 % (36.0-66.0); PLATELET COUNT, AUTOMATED 195 10^3/uL (150-450); RED BLOOD COUNT 3.35 10^6/uL (4.30-6.10); WHITE BLOOD COUNT 3.9 10^3/uL (4.0-10.0)
[2024-05-27 18:20] LABS: ALBUMIN 2.8 G/DL (3.2-5.2); ALKALINE PHOSPHATASE 127 U/L (46-116); ALT/SGPT 25 U/L (7.0-40); AST/SGOT 17 U/L (<34); BILIRUBIN,TOTAL 0.5 MG/DL (0.3-1.2); BLOOD UREA NITROGEN 16 MG/DL (9-23); CALCIUM LEVEL 8.3 MG/DL (8.3-10.6); CARBON DIOXIDE LEVEL 26 MMOL/L (20-31); CHLORIDE LEVEL 103 MMOL/L (98-107); CREATININE FOR GFR 0.82 MG/DL (0.70-1.30); GLOMERULAR FILTRATION RATE > 60.0 (>35); GLUCOSE, FASTING 111 MG/DL (74-106); POTASSIUM SERUM 4.2 MMOL/L (3.5-5.1); SODIUM LEVEL 137 MMOL/L (136-145)
== END ==
LOC: M SFHCADAM 13:25
PROVIDERS: ATTEND Family Medicine
DX: J22 Unspecified acute lower respiratory infection (principal); R60.0 Localized edema; C90.00 Multiple myeloma not having achieved remission; U07.1 COVID-19; K59.00 Constipation, unspecified

== ENCOUNTER → 2024-11-03 | Outpatient (REF) | payer MEDICARE | LOC: M SFHCADAM 15:42 | PROVIDERS: ATTEND Family Medicine | DX: E03.9 Hypothyroidism, unspecified (principal) ==

== ENCOUNTER → 2025-03-23 | Outpatient (CLI) | payer MEDICARE ==
[~2025-03-23] MED LIST changes: +ACYC-438; -ACYC1TAB
== END ==
LOC: M LABDRWAD 12:37 → M ADAMS 12:37
PROVIDERS: ATTEND Family Medicine
DX: M43.9 Deforming dorsopathy, unspecified (principal); Z87.81 Personal history of (healed) traumatic fracture

== ENCOUNTER → 2025-06-18 | Outpatient (REF) | payer MEDICARE | LOC: M LAB REF 17:25 | PROVIDERS: ATTEND Podiatrist | DX: L03.116 Cellulitis of left lower limb (principal) ==